=== PATIENT | female | born 1970 | race Caucasian/White ===

== ENCOUNTER 2018-03-12 10:51 | Outpatient (CLI) | payer BC ==
--- NOTE | 2018-03-12 12:42 | RAD ---
LUMBAR SPINE TWO VIEWS: HISTORY: Back pain. TECHNIQUE: AP and lateral views of the lumbar spine are obtained. FINDINGS: Two views of the lumbar spine demonstrate no evidence of lumbar spine fractures, subluxations, or bon y lesions. IMPRESSION: Normal two views lumbar spine. POS: [facility]
== END 2018-03-12 10:52 | disposition home or self-care (01) ==
LOC: BICRAD 10:51
PROVIDERS: ATTEND Internal Medicine Rheumatology
DX: M46.97 Unspecified inflammatory spondylopathy, lumbosacral region (principal)
CPT/HCPCS: 72100